=== PATIENT | female | born 1975 | race Caucasian/White ===

== ENCOUNTER 2018-09-11 05:32 | Day surgery (SDC) | payer OTHER | END 2018-09-11 12:00 | disposition home or self-care (01) | LOC: CIR.AMB 05:32 | DX: D24.2 Benign neoplasm of left breast (principal) ==

== ENCOUNTER 2019-09-17 14:17 | Outpatient (CLI) | payer OTHER | END 2019-09-17 14:27 | disposition home or self-care (01) | LOC: SONOGRAMA 14:17 | DX: N61.1 Abscess of the breast and nipple (principal); N61.0 Mastitis without abscess ==